=== PATIENT | female | born 1955 | race Caucasian/White ===

== ENCOUNTER 2018-11-13 20:39 | Observation (INO) | payer BC, OTHER ==
[2018-11-14] MEDS ORDERED: FENTANYL CITR 100 MCG/2 ML ONE (01:12)
--- NOTE | 2018-11-14 03:17 | ER ---
Nurse's Notes [facility] Name: Marielle Clark Age: 63 yrs Sex: Female : 1955 Arrival Date: 11/13/2018 Time: 20:40 Bed 16 Private MD: Diagnosis: Comminuted fracture of shaft of tibia;Displaced fracture of medial condyle of right femur Presentation: 11/13 20:45 Presenting complaint: EMS states: right leg and knee pain sustained from fall from bed cc3 at home. Transition of care: patient was not received from another setting of care. Onset of symptoms was November 13, 2018. Risk Assessment: Do you want to hurt yourself or someone else? Patient reports no desire to harm self or others. Initial Sepsis Screen: Does the patient meet any 2 criteria? No. Patient's initial sepsis screen is negative. Does the patient have a suspected source of infection? No. Patient's initial sepsis screen is negative. Care prior to arrival: Medication(s) given: Patient on Fentanyl Patch 25 mcg/hr on her right upper chest since yesterday (she said she's been taking it PRN for 72 hours for her migraines and left shoulder pain), patient said she took Oxycodone 10 mg oral prior to coming to ER, Vistaril 50 mg for her nausea prior to consult, and Xanax 1mg. 20:45 Method Of Arrival: EMS: [facility] cc3 20:45 Acuity: FRIEDA 3 cc3 Triage Assessment: 20:45 General: Appears in no apparent distress. uncomfortable, Behavior is cooperative, cc3 appropriate for age. Pain: Complains of pain in right knee. EENT: No signs and/or symptoms were reported regarding the EENT system. Neuro: Level of Consciousness is awake, alert, obeys commands, Oriented to person, place, time, situation, Appropriate for age. Cardiovascular: Denies chest pain. Respiratory: Airway is patent Respiratory effort is even, unlabored, Respiratory pattern is regular, symmetrical. GI: Abdomen is round obese. : No signs and/or symptoms were reported regarding the genitourinary system. Derm: No signs and/or symptoms reported regarding the dermatologic system. Musculoskeletal: Circulation, motion, and sensation intact. Range of motion: limited in right knee. Historical: - Allergies: 20:45 BACLOFEN; cc3 20:45 chlorpromazine HCl; cc3 20:45 Cipro; cc3 20:45 Compazine; cc3 20:45 thorazine; cc3 20:45 Imipramine; cc3 20:45 Nubain; cc3 20:45 Phenergan; cc3 20:45 Reglan; cc3 20:45 Stadol; cc3 20:45 Toradol; cc3 - PMHx: 20:45 Bronchitis; High Cholesterol; Hypothyroidism; Migraines; bladder and rectal prolapse; cc3 - PSHx: 20:45 Hysterectomy; Appendectomy; Tubal ligation; right and left knee surgeries; left cc3 shoulder surgery; - Immunization history:: Adult Immunizations not up to date, Flu vaccine is not up to date. It has been more than one year since last vaccine. - Social history:: Smoking status: Patient/guardian denies using tobacco, never smoked. - Ebola Screening: : No symptoms or risks identified at this time. Screenin:45 Abuse screen: Denies threats or abuse. Denies injuries from another. Nutritional cc3 screening: No deficits noted. Tuberculosis screening: No symptoms or risk factors identified. Fall Risk Ambulatory Aid- None/Bed Rest/Nurse Assist (0 pts). Gait- Normal/Bed Rest/Wheelchair (0 pts) Mental Status- Oriented to own ability (0 pts). Assessment: 20:45 General: see triage assessment. cc3 21:20 Reassessment: Patient appears in no apparent distress at this time. Patient and/or cc3 family updated on plan of care and expected duration. Pain level reassessed. Patient is alert, oriented x 3, equal unlabored respirations, skin warm/dry/pink. 22:25 Reassessment: Patient appears in no apparent distress at this time. Patient and/or cc3 family updated on plan of care and expected duration. Pain level reassessed. Patient is alert, oriented x 3, equal unlabored respirations, skin warm/dry/pink. 23:14 Reassessment: Patient appears in no apparent distress at this time. Patient and/or cc3 family updated on plan of care and expected duration. Pain level reassessed. Patient is alert, oriented x 3, equal unlabored respirations, skin warm/dry/pink. 11/14 00:39 Reassessment: Patient appears in no apparent distress at this time. Patient and/or cc3 family updated on plan of care and expected duration. Pain level reassessed. Patient is alert, oriented x 3, equal unlabored respirations, skin warm/dry/pink. Patient came back from CT scan department, awaiting result; patient complained of knee pain, informed charge nurse Marielle because Dr. Mera and MIGNON Hester went up to the med-surg unit for a code, and explained to the patient. 01:00 Reassessment: Patient appears in no apparent distress at this time. Patient and/or cc3 family updated on plan of care and expected duration. Pain level reassessed. Patient is alert, oriented x 3, equal unlabored respirations, skin warm/dry/pink. Dr. Mera is aware that patient is on Fentanyl patch 25 mcg/hr since yesterday but he still ordered for Fentanyl 25 mcg IV to be given now for the patient's pain. 01:16 Reassessment: Patient appears in no apparent distress at this time. Patient and/or cc3 family updated on plan of care and expected duration. Pain level reassessed. Patient is alert, oriented x 3, equal unlabored respirations, skin warm/dry/pink. 02:14 Reassessment: Patient appears in no apparent distress at this time. Patient and/or cc3 family updated on plan of care and expected duration. Pain level reassessed. Patient is alert, oriented x 3, equal unlabored respirations, skin warm/dry/pink. 03:00 Reassessment: Patient appears in no apparent distress at this time. Patient and/or cc3 family updated on plan of care and expected duration. Pain level reassessed. Patient is alert, oriented x 3, equal unlabored respirations, skin warm/dry/pink. Dr. Mera said patient is for admission, awaiting admission orders. 03:40 Reassessment: Room available at 220, report called and handed over to TEMO clancy for continuity of care. 03:49 Reassessment: Patient left ER for admission vitally stable by stretcher escorted by in katie3 and the patient's . Vital Signs: 11/13 20:45 BP 111 / 84; Pulse 87; Resp 20 S; Temp 98.6(O); Pulse Ox 100% on R/A; Weight 85.28 kg cc3 (R); Height 5 ft. 3 in. (160.02 cm) (M); 21:39 BP 147 / 79; Pulse 77; Resp 18 S; Pulse Ox 99% on R/A; cc3 22:30 BP 159 / 73; Pulse 76; Resp 18 S; Pulse Ox 99% on R/A; cc3 23:12 BP 134 / 70; Pulse 80; Resp 18 S; Pulse Ox 98% on R/A; cc3 11/14 00:42 BP 153 / 91; Pulse 87; Resp 20 S; Pulse Ox 96% on R/A; cc3 01:16 BP 141 / 90; Pulse 80; Resp 19 S; Pulse Ox 100% on R/A; cc3 02:14 BP 124 / 80; Pulse 75; Resp 19 S; Pulse Ox 95% on R/A; cc3 03:30 BP 139 / 80; Pulse 76; Resp 19 S; Pulse Ox 97% on R/A; cc3 11/13 20:45 Body Mass Index 33.30 (85.28 kg, 160.02 cm) cc3 ED Course: 11/13 20:40 Patient arrived in ED. ds1 20:41 Chaitanya Mera MD is Attending Physician. gs 20:45 Arm band placed on left wrist. Patient notified of wait time. cc3 20:45 Patient has correct armband on for positive identification. Bed in low position. Call cc3 light in reach. Side rails up X2. Pulse ox on. NIBP on. 20:45 Maintain EMS IV. Dressing intact. Good blood return noted. Site clean \T\ dry. Gauge \T\ cc 3 site: gauge 22 left ACV. 20:53 Tiffanie Hines is Primary Nurse. cc3 20:58 Triage completed. cc3 21:36 Knee Right 3 View XRAY In Process Unspecified. EDMS 21:36 Tib Fib Right XRAY In Process Unspecified. EDMS 21:36 Foot Right 3 View XRAY In Process Unspecified. EDMS 02 00:[address] via stretcher. kw1 00:25 CT completed. Patient tolerated procedure well. Patient moved back from CT. kw1 00:50 Knee Right Wo Cont In Process Unspecified. EDMS 03:15 Sandi Jordan MD is Hospitalizing Provider. gs 03:40 No provider procedures requiring assistance completed. Patient admitted, IV remains in cc3 place. Administered Medications: 01:05 Drug: fentaNYL (PF) 25 mcg Route: IVP; Site: left antecubital; cc3 01:31 Follow up: Response: No adverse reaction cc3 Outcome: 03:16 Decision to Hospitalize by Provider. [email or web address] 03:40 Admitted to Med/surg accompanied by tech, family with patient, via stretcher, room 220, cc3 with chart, Report called to TEMO Shi 03:40 Condition: stable 03:40 Instructed on the need for admit, Demonstrated understanding of instructions. 03:49 Patient left the ED. cc3 Signatures: Dispatcher [employer] EDPR Adelia Yadav1 Chaitanya Mera MD MD gs Wilhelm, Kimberly kw1 Tiffanie Hines cc3 Corrections: (The following items were deleted from the chart) 00:50 00:39 Reassessment: Patient appears in no apparent distress at this time. Patient cc3 and/or family updated on plan of care and expected duration. Pain level reassessed. Patient is alert, oriented x 3, equal unlabored respirations, skin warm/dry/pink. Patient came back from CT scan department, awaiting result. cc3 01:16 0202 20:45 Care prior to arrival: Medication(s) given: Patient on Fentanyl Patch on cc3 her right upper chest since yesterday (she said she's been taking it PRN for 72 hours for her migraines and left shoulder pain), patient said she took Oxycodone 10 mg oral prior to coming to ER, Vistaril 50 mg for her nausea prior to consult, and Xanax 1mg. cc3 11/14 01:20 01:16 Pulse 74bpm; Resp 19bpm; Spontaneous; Pulse Ox 96% RA; cc3 cc3 03:44 03:09 Pulse 76bpm; Resp 19bpm; Spontaneous; Pulse Ox 97% RA; cc3 cc3
--- NOTE | 2018-11-14 03:17 | EDPHYS ---
Physician Documentation [facility] Name: Marielle Clark Age: 63 yrs Sex: Female : 1955 Arrival Date: 11/13/2018 Time: 20:40 Bed 16 Private MD: ED Physician Chaitanya Mera HPI: 11/14 03:09 This 63 yrs old Female presents to ER via EMS with complaints of r knee pain. gs 03:09 The patient presents with pain, that is acute. The complaints affect the right knee. gs Context: resulted from the patient falling, fell out of bed. Onset: The symptoms/episode began/occurred acutely, yesterday. Modifying factors: the symptoms are aggravated by weight bearing, bending knee. Associated signs and symptoms: Pertinent negatives calf tenderness, numbness, head injury. Severity of symptoms: At their worst the symptoms were severe, in the emergency department the symptoms are unchanged. The patient has not experienced similar symptoms in the past. Historical: - Allergies: 11/13 20:45 BACLOFEN; cc3 20:45 chlorpromazine HCl; cc3 20:45 Cipro; cc3 20:45 Compazine; cc3 20:45 thorazine; cc3 20:45 Imipramine; cc3 20:45 Nubain; cc3 20:45 Phenergan; cc3 20:45 Reglan; cc3 20:45 Stadol; cc3 20:45 Toradol; cc3 - PMHx: 20:45 Bronchitis; High Cholesterol; Hypothyroidism; Migraines; bladder and rectal prolapse; cc3 - PSHx: 20:45 Hysterectomy; Appendectomy; Tubal ligation; right and left knee surgeries; left cc3 shoulder surgery; - Immunization history:: Adult Immunizations not up to date, Flu vaccine is not up to date. It has been more than one year since last vaccine. - Social history:: Smoking status: Patient/guardian denies using tobacco, never smoked. - Ebola Screening: : No symptoms or risks identified at this time. ROS: 11/14 03:09 All other systems are negative. gs Exam: 03:09 Eyes: Pupils equal round and reactive to light, extra-ocular motions intact. Lids and gs lashes normal. Conjunctiva and sclera are non-icteric and not injected. Cornea within normal limits. Periorbital areas with no swelling, redness, or edema. ENT: Nares patent. No nasal discharge, no septal abnormalities noted. Tympanic membranes are normal and external auditory canals are clear. Oropharynx with no redness, swelling, or masses, exudates, or evidence of obstruction, uvula midline. Mucous membranes moist. Cardiovascular: Regular rate and rhythm with a normal S1 and S2. No gallops, murmurs, or rubs. Normal PMI, no JVD. No pulse deficits. Respiratory: Lungs have equal breath sounds bilaterally, clear to auscultation and percussion. No rales, rhonchi or wheezes noted. No increased work of breathing, no retractions or nasal flaring. Abdomen/GI: Soft, non-tender, with normal bowel sounds. No distension or tympany. No guarding or rebound. No evidence of tenderness throughout. Back: No spinal tenderness. No costovertebral tenderness. Full range of motion. Skin: Warm, dry with normal turgor. Normal color with no rashes, no lesions, and no evidence of cellulitis. Neuro: Awake and alert, GCS 15, oriented to person, place, time, and situation. Cranial nerves II-XII grossly intact. Motor strength 5/5 in all extremities. Sensory grossly intact. Cerebellar exam normal. Normal gait. 03:09 Constitutional: The patient appears alert, awake, uncomfortable. 03:09 Musculoskeletal/extremity: ROM: limited active range of motion, limited passive range of motion, limited active range of motion due to pain, limited passive range of motion due to pain, Circulation is intact in all extremities. Sensation intact. Joints: the right knee displays effusion, limited range of motion, pain at rest, swelling, tenderness. Vital Signs: 11/13 20:45 BP 111 / 84; Pulse 87; Resp 20 S; Temp 98.6(O); Pulse Ox 100% on R/A; Weight 85.28 kg cc3 (R); Height 5 ft. 3 in. (160.02 cm) (M); 21:39 BP 147 / 79; Pulse 77; Resp 18 S; Pulse Ox 99% on R/A; cc3 22:30 BP 159 / 73; Pulse 76; Resp 18 S; Pulse Ox 99% on R/A; cc3 23:12 BP 134 / 70; Pulse 80; Resp 18 S; Pulse Ox 98% on R/A; cc3 02/03 00:42 BP 153 / 91; Pulse 87; Resp 20 S; Pulse Ox 96% on R/A; cc3 01:16 BP 141 / 90; Pulse 80; Resp 19 S; Pulse Ox 100% on R/A; cc3 02:14 BP 124 / 80; Pulse 75; Resp 19 S; Pulse Ox 95% on R/A; cc3 03:30 BP 139 / 80; Pulse 76; Resp 19 S; Pulse Ox 97% on R/A; 3 11/13 20:45 Body Mass Index 33.30 (85.28 kg, 160.02 cm) cc3 MDM: 11/13 20:51 Patient medically screened. 11/14 03:09 Differential diagnosis: dislocation, closed fracture, contusion, abrasion. Data gs reviewed: vital signs, nurses notes. Counseling: I had a detailed discussion with the patient and/or guardian regarding: the historical points, exam findings, and any diagnostic results supporting the discharge/admit diagnosis, radiology results, the need for further work-up and treatment in the hospital. Response to treatment: the patient's symptoms have mildly improved after treatment, and as a result, I will admit patient. Physician consultation: Jese Galeano MD and will see patient in inpatient room. 03:09 Physician consultation: would like admission per Dr. Sandi Jordan MD. 11/14 03:27 Order name: Comprehensive Metabolic Panel EDMS 11/14 03:27 Order name: Comprehensive Metabolic Panel EDMS 11/14 03:27 Order name: Magnesium EDMS 11/14 03:27 Order name: Magnesium EDMS 11/14 03:27 Order name: Phosphorus EDMS 11/14 03:27 Order name: Phosphorus EDMS 11/13 20:50 Order name: Knee Right 3 View XRAY 11/13 20:50 Order name: Tib Fib Right XRAY 11/13 20:50 Order name: Foot Right 3 View XRAY 11/13 23:17 Order name: Knee Right Wo Cont EDMS 11/14 03:27 Order name: Protime (+INR) EDMS 11/14 03:27 Order name: Protime (+INR) EDMS 11/14 03:27 Order name: PTT, Activated Partial Thromb EDMS 11/14 03:27 Order name: PTT, Activated Partial Thromb EDMS 11/14 03:28 Order name: CONS Physician Consult EDVT 11/14 03:28 Order name: NPO EDVT 11/14 03:28 Order name: EKG Electrocardiogram EDVT Administered Medications: 01:05 Drug: fentaNYL (PF) 25 mcg Route: IVP; Site: left antecubital; cc3 01:31 Follow up: Response: No adverse reaction cc3 Disposition: 11/14/18 03:16 Hospitalization ordered by Sandi Jordan for Observation. Preliminary diagnosis are Comminuted fracture of shaft of tibia, Displaced fracture of medial condyle of right femur. - Bed requested for Telemetry/MedSurg (observation). - Status is Observation. cc3 - Condition is Stable. - Problem is new. - Symptoms are unchanged. UTI on Admission? No Signatures: Dispatcher [employer] [facility] Nupur Christensen RN RN Chaitanya Mera MD MD Tiffanie Hines cc3 Corrections: (The following items were deleted from the chart) 03:22 03:16 Hospitalization Ordered by Sandi Jordan MD for Observation. Preliminary mw diagnosis is Comminuted fracture of shaft of tibia; Displaced fracture of medial condyle of right femur. Bed requested for Telemetry/MedSurg (observation). Status is Observation. Condition is Stable. Problem is new. Symptoms are unchanged. UTI on Admission? No. 03:49 03:22 11/14/2018 03:16 Hospitalization Ordered by Sandi Jordan MD for Observation. cc3 Preliminary diagnosis is Comminuted fracture of shaft of tibia; Displaced fracture of medial condyle of right femur. Bed requested for Telemetry/MedSurg (observation). Status is Observation. Condition is Stable. Problem is new. Symptoms are unchanged. UTI on Admission? No. mw
[2018-11-14] MEDS ORDERED: ACETAMINOPHEN 500 MG TAB PO PRN (03:21)
[2018-11-14] MEDS: HYDROMORPHONE HCL 1 MG/ML INJ IV PRN ×2 (04:50→11:08)
[2018-11-14] MEDS: NA CHLORIDE 0.9% 1,000 ML IV SCH ×2 (05:02→16:13)
[2018-11-14 05:08] VITALS: BMI 32.8
[2018-11-14 05:32] LABS: Absolute Lymphocytes (CBC) 0.9 K/uL (0.7-4.9); Absolute Monocytes 0.8 K/uL (0.1-1.3); Absolute Neutrophil 4.9 K/uL (1.8-8.0); Basophils % 0.3 % (0-1.3); Hematocrit 33.6 % (36.0-45.0); Lymphocytes % 13.3 % (15.3-44.8); MPV 10.7 fL (7.6-11.3); Monocytes % 11.8 % (3.3-12.3); RBC Red Blood Cell Count 4.72 M/uL (3.86-4.86)
[2018-11-14 05:48] LABS: Protime INR 1.08
[2018-11-14 05:55] LABS: Albumin 3.7 g/dL (3.4-5.0); Bilirubin Total 1.2 mg/dL (0.2-1.0); Magnesium 1.9 mg/dL (1.8-2.4); Phosphorus 3.2 mg/dL (2.5-4.9); Potassium 4.1 mmol/L (3.5-5.1); Protein, Total 6.8 g/dL (6.4-8.2)
[2018-11-14] MEDS ORDERED: CEFAZOLIN/NS 1gm 1 GM/50 ML BAG IVPB SCH (06:00)
[2018-11-14] MEDS ORDERED: CEFAZOLIN 1GM (PREMIX IV) 1 GM/50 ML BAG ONE (06:27)
--- NOTE | 2018-11-14 08:04 | P.HP ---
Certification for Inpatient Patient admitted to: Inpatient With expected LOS: >2 Midnights Patient will require the following post-hospital care: None Practitioner: I am a practitioner with admitting privileges, knowledge of patient current condition, hospital course, and medical plan of care. Services: Services provided to patient in accordance with Admission requirements found in Title 42 Section 412.3 of the Code of Federal Regulations Patient History Date of Service: 11/14/18 Reason for admission: Status post fall History of Present Illness: Patient is a 63-year-old female who was admitted to the hospital after falling and suffering a tibial plateau fracture as well as a small fracture of the medial femoral condyle. Patient was dusting in standing on a support when she lost her balance and fell. She apparently knocked over a lot of different things that landed on her and she had a lot of pain when she tried to get up. Her leg was deviated outward, and she had a lot of pain when she tried to stand. EMS was called, and patient brought into the hospital. Initial x-rays did not reveal any significant fractures. However, CT scan revealed a tibial plateau fracture which extended into the medial femoral condyle. Patient was brought into the hospital for admission. Allergies baclofen Allergy (Verified 11/14/18 04:35) Itching/Hives/Rash butorphanol [From Stadol] Allergy (Verified 11/14/18 04:35) Unknown butorphanol tartrate [From Stadol] Allergy (Verified 11/14/18 04:35) Itching/Hives/Rash chlorpromazine HCl [From Thorazine] Allergy (Verified 11/14/18 04:35) Itching/Hives/Rash ciprofloxacin [From Cipro] Allergy (Verified 11/14/18 04:35) Itching/Hives/Rash ciprofloxacin HCl [From Cipro] Allergy (Verified 12/02/12 09:46) Itching/Hives/Rash ketorolac Allergy (Verified 11/14/18 04:35) Unknown ketorolac tromethamine [From Toradol] Allergy (Verified 11/14/18 04:35) Itching/Hives/Rash metoclopramide [From Reglan] Allergy (Verified 11/14/18 04:35) Unknown metoclopramide HCl [From Reglan] Allergy (Verified 11/14/18 04:35) Itching/Hives/Rash nalbuphine [From Nubain] Allergy (Verified 11/14/18 04:35) Unknown nalbuphine HCl [From Nubain] Allergy (Verified 11/14/18 04:35) Itching/Hives/Rash prochlorperazine [From Compazine] Allergy (Verified 11/14/18 04:35) Unknown prochlorperazine edisylate [From Compazine] Allergy (Verified 12/02/12 09:46) Itching/Hives/Rash prochlorperazine maleate [From Compazine] Allergy (Verified 12/02/12 09:46) Itching/Hives/Rash promethazine HCl [From Phenergan] Allergy (Verified 11/14/18 04:35) Itching/Hives/Rash chlorp Allergy (Uncoded 04/14/16 13:13) Unknown Ci Allergy (Uncoded 10/13/15 19:10) Unknown Cipro PO Allergy (Uncoded 11/14/18 04:35) Unknown Imi Allergy (Uncoded 01/26/16 12:03) Unknown Imipramine Allergy (Uncoded 02/01/15 20:21) Unknown LIMPRAMIN Allergy (Uncoded 11/14/18 04:35) Itching/Hives/Rash thorazine Allergy (Uncoded 11/14/18 04:35) Unknown Home Medications: ALPRAZolam [Xanax*] 1 tab PO Q8H 11/14/18 Atorvastatin Calcium [Lipitor] 20 mg PO BEDTIME 11/14/18 Levothyroxine Sodium 75 mcg PO DAILY 11/14/18 Oxycodone HCl [Oxycontin] 10 mg PO QID 11/14/18 hydrOXYzine pamoate [Hydroxyzine Pamoate] 50 mg PO TID 11/14/18 - Past Medical/Surgical History Has patient received pneumonia vaccine in the past: No Diabetic: No -: bronchitis -: bladder and rectal prolapse -: migraine -: left shoulder pain -: 4 knee surgeries on the left knee -: 1 knee surgery on right -: tubal ligation -: hysterrectomy - Social History Smoking Status: Never smoker Alcohol use: No CD- Drugs: No Caffeine use: No Place of Residence: Home Review of Systems 10-point ROS is otherwise unremarkable Physical Examination - Vital Signs Temperature: 99.4 F Blood Pressure: 149/70 Pulse: 77 Respirations: 18 Pulse Ox (%): 99 - Physical Exam General: Alert, In no apparent distress, Oriented x3 HEENT: Atraumatic, PERRLA, Mucous membr. moist/pink, EOMI, Sclerae nonicteric Neck: Supple, 2+ carotid pulse no bruit, No LAD, Without JVD or thyroid abnormality Respiratory: Clear to auscultation bilaterally, Normal air movement Cardiovascular: Regular rate/rhythm, Normal S1 S2, No murmurs Gastrointestinal: Normal bowel sounds, Soft and benign, Non-distended, No tenderness Musculoskeletal: No clubbing, No swelling, Tenderness, Other ( Deviation towards the outside of the leg) Integumentary: No rashes Neurological: Normal gait, Normal speech, Normal strength at 5/5 x4 extr, Normal tone, Sensation intact, Cranial nerves 3-12 intact, Normal affect Lymphatics: No axilla or inguinal lymphadenopathy Assessment & Plan - Problems (Diagnosis) (1) Tibial plateau fracture Current Visit: Yes Status: Acute Qualifiers: Encounter type: initial encounter Laterality: right (2) Femoral condyle fracture Current Visit: Yes Status: Acute Qualifiers: Encounter type: initial encounter Fracture alignment: nondisplaced Laterality: right (3) Status post fall Current Visit: Yes Status: Acute - Plan plan: 1. orthopedic consultation 2. pain control 3. strict blood pressure control 4. patient is low risk for any medical and cardiopulmonary complications. Okay to proceed with surgery if necessary 5. physical therapy evaluation 6. GI and DVT prophylaxis Discharge Plan: Home Plan to discharge in: Greater than 2 days - Advance Directives Does patient have a Living Will: No Does patient have a Durable POA for Healthcare: No - Code Status/Comfort Care Code Status Assessed: Yes Code Status: Full Code Critical Care: No Time Spent Managing PTS Care (In Minutes): 50
[2018-11-14] MEDS: ALPRAZOLAM 1 MG TABLET PO SCH ×2 (08:50→16:13)
[2018-11-14] MEDS: hydrOXYzine HCl 25 MG TAB PO SCH ×3 (08:50→21:13)
[2018-11-14] MEDS: OXYCODONE *CR* 10 MG TAB PO SCH ×4 (08:51→21:13)
[2018-11-14] MEDS ORDERED: HOME MED 1 EA UNK (Oxycodone Hcl [Oxycontin] 10 MG) PO SCH (09:00)
[2018-11-14] MEDS ORDERED: HYDROXYZINE PAMOATE 50 MG PO SCH (09:00)
--- NOTE | 2018-11-14 10:46 | RAD REPORT ---
EXAM DESCRIPTION: RAD - Knee Right 3 View - 11/13/2018 9:36 pm CLINICAL HISTORY: PAIN Trauma, pain and swelling COMPARISON: None FINDINGS: Right knee and right tibia/ fibula - multiple projections are submitted Comminuted fracture involving the lateral tibial plateau. Small fracture involving the medial femoral condyle. Moderate lipohemarthrosis. No dislocation evident.
--- NOTE | 2018-11-14 10:47 | RAD REPORT ---
EXAM DESCRIPTION: RAD - Foot Right 3 View - 11/13/2018 9:36 pm CLINICAL HISTORY: PAIN Trauma, pain COMPARISON: No comparisons FINDINGS: No acute fracture or dislocation seen. Small calcaneal spurs are present.
[2018-11-14 11:27] LABS: Urine Appearance CLOUDY; Urine Bilirubin NEGATIVE (NEG); Urine Blood 1+ (NEG); Urine Color YELLOW; Urine Glucose NEGATIVE (NEG); Urine Protein NEGATIVE (NEG); Urine Urobilinogen 0.2 mg/dL (0.2-1.0); Urine pH 5.5 (5.0-7.0)
[2018-11-14 11:39] LABS: Urine Microscopic Reflex ORDER UMIC
[2018-11-14] MEDS: CEFAZOLIN/SWI 1gm 1 GM/10 ML SYR IVP SCH ×2 (12:00→17:00)
[2018-11-14 13:20] LABS: Urine Amorphous Sediment 1+ /HPF (NONE SEEN); Urine Bacteria >50 /HPF (<20); Urine Culture Reflex Order REFLEXED; Urine RBC <5 /HPF (NONE SEEN)
[2018-11-14] MEDS: ENOXAPARIN 30 MG/0.3 ML SQ SCH (16:13)
[2018-11-14] MEDS: HYDROCODONE/APAP 10/325 TAB PO PRN (18:54)
[2018-11-14] MEDS: ATORVASTATIN 20 MG TAB PO SCH (21:12)
[2018-11-15] MEDS: CEFAZOLIN/SWI 1gm 1 GM/10 ML SYR IVP SCH ×5 (00:35→23:36)
[2018-11-15] MEDS: ALPRAZOLAM 1 MG TABLET PO SCH ×3 (00:35→16:54)
--- NOTE | 2018-11-15 03:01 | CON ---
Date of Consultation: 11/14/2018 This is my first time seeing this patient to my knowledge. She is a 63-year-old female who was appar ently standing on her bed, cleaning the top of the headboard when she lost her balance and fell injur ing her right lower extremity. She was seen and examined in the emergency department where x-rays we re taken, which failed to demonstrate any fractures or dislocations other than a tibial plateau fract ure with comminution of the lateral tibial plateau. There is also perhaps a very small tulio off the medial femoral condyle versus calcification. On further review of her history, she has had trouble with her left shoulder in the past, having at least 2 surgeries. She says she has had 4 surgeries on her left knee and 1 surgery previously on her right. She is currently under the pain management of Dr. Roberts and she was admitted last night through the emergency department. Physical Examination: On physical examination today, she complained of pain in the left shoulder with limited mobility, als o complaining of pain in the right knee. There is significant effusion to the right knee. There is no abrasion or sign of open injury. She is neurovascularly intact with no sign of compartment syndro me. There is no obvious clinical deformity. Assessment: Definitely would apply a knee immobilizer to the right lower extremity. Consult Physica l therapy for touchdown weightbearing on the right. Also, I believe that an SCD will be placed on he r left lower extremity. I believe pain management and immobilization is necessary and would not proc eed with any operative intervention at least a few more days to allow the skin envelope to mature as she may or may not develop significant swelling, but this does occur, we may need to delay this even longer. Otherwise, all of her questions have been answered today. /FABIAN Voice ID: [id number] Report ID: [id number]
[2018-11-15] MEDS: HYDROCODONE/APAP 10/325 TAB PO PRN ×2 (04:14→12:12)
[2018-11-15] MEDS: NA CHLORIDE 0.9% 1,000 ML IV SCH ×2 (05:33→20:27)
[2018-11-15] MEDS: LEVOTHYROXINE SOD 0.075 MG TAB PO SCH (05:33)
[2018-11-15] MEDS: OXYCODONE *CR* 10 MG TAB PO SCH (08:38)
[2018-11-15] MEDS: hydrOXYzine HCl 25 MG TAB PO SCH ×3 (08:39→20:26)
--- NOTE | 2018-11-15 10:15 | RAD REPORT ---
EXAM DESCRIPTION: CT Right Lower Extremity Without Intravenous Contrast, Knee CLINICAL HISTORY: The patient is 64 years old and is Female: Injury, abl plain film COMPARISON: No relevant prior studies available. TECHNIQUE: Axial computed tomography images of the right knee without intravenous contrast. Sagittal and coronal reformatted images were created and reviewed. This CT exam was performed using one or more of the fo llowing dose reduction techniques: Automated exposure control, adjustment of the mA and/or kV accordi ng to patient size, and/or use of iterative reconstruction technique. FINDINGS: Bone/Joints: A moderate lipohemarthrosis is present. A impacted and comminuted lateral tibial plateau fracture is present. The fracture plane extends into the intercondylar eminence. There is also a nondisplaced fracture involving the medial femoral condy le. Soft tissues: Unremarkable. IMPRESSION: 1. Comminuted impacted lateral tibial plateau fracture with extension into the intercondylar eminence . 2. Small fracture off of the medial femoral condyle. Given the location, there is possibility of medi al collateral ligament injury. 3. Moderate lipohemarthrosis. Electronically signed by: Gale Forbes MD 11/14/2018 1:42 AM [employer]ANK[employer] Due to temporary technical issues with the PACS/Fluency reporting system, reports are being signed by the in house radiologist as a courtesy to ensure prompt reporting. The interpreting radiologist is f ully responsible for the content of the report.
--- NOTE | 2018-11-15 12:56 | P.SSS ---
Patient History Date of Service: 11/15/18 Reason for admission: Status post fall History of Present Illness: Patient is a 63-year-old female who was admitted to the hospital after falling and suffering a tibial plateau fracture as well as a small fracture of the medial femoral condyle. Patient was dusting in standing on a support when she lost her balance and fell. She apparently knocked over a lot of different things that landed on her and she had a lot of pain when she tried to get up. Her leg was deviated outward, and she had a lot of pain when she tried to stand. EMS was called, and patient brought into the hospital. Initial x-rays did not reveal any significant fractures. However, CT scan revealed a tibial plateau fracture which extended into the medial femoral condyle. Patient was brought into the hospital for admission. Allergies baclofen Allergy (Verified 11/14/18 04:35) Itching/Hives/Rash butorphanol [From Stadol] Allergy (Verified 11/14/18 04:35) Unknown butorphanol tartrate [From Stadol] Allergy (Verified 11/14/18 04:35) Itching/Hives/Rash chlorpromazine HCl [From Thorazine] Allergy (Verified 11/14/18 04:35) Itching/Hives/Rash ciprofloxacin [From Cipro] Allergy (Verified 11/14/18 04:35) Itching/Hives/Rash ciprofloxacin HCl [From Cipro] Allergy (Verified 12/02/12 09:46) Itching/Hives/Rash ketorolac Allergy (Verified 11/14/18 04:35) Unknown ketorolac tromethamine [From Toradol] Allergy (Verified 11/14/18 04:35) Itching/Hives/Rash metoclopramide [From Reglan] Allergy (Verified 11/14/18 04:35) Unknown metoclopramide HCl [From Reglan] Allergy (Verified 11/14/18 04:35) Itching/Hives/Rash nalbuphine [From Nubain] Allergy (Verified 11/14/18 04:35) Unknown nalbuphine HCl [From Nubain] Allergy (Verified 11/14/18 04:35) Itching/Hives/Rash prochlorperazine [From Compazine] Allergy (Verified 11/14/18 04:35) Unknown prochlorperazine edisylate [From Compazine] Allergy (Verified 12/02/12 09:46) Itching/Hives/Rash prochlorperazine maleate [From Compazine] Allergy (Verified 12/02/12 09:46) Itching/Hives/Rash promethazine HCl [From Phenergan] Allergy (Verified 11/14/18 04:35) Itching/Hives/Rash chlorp Allergy (Uncoded 04/14/16 13:13) Unknown Ci Allergy (Uncoded 10/13/15 19:10) Unknown Cipro PO Allergy (Uncoded 11/14/18 04:35) Unknown Imi Allergy (Uncoded 01/26/16 12:03) Unknown Imipramine Allergy (Uncoded 02/01/15 20:21) Unknown LIMPRAMIN Allergy (Uncoded 11/14/18 04:35) Itching/Hives/Rash thorazine Allergy (Uncoded 11/14/18 04:35) Unknown Home Medications: ALPRAZolam [Xanax*] 1 tab PO Q8H 11/14/18 Atorvastatin Calcium [Lipitor*] 20 mg PO BEDTIME 11/14/18 Levothyroxine Sodium 75 mcg PO DAILY 11/14/18 Oxycodone HCl [Oxycontin] 10 mg PO QID 11/14/18 hydrOXYzine pamoate [Hydroxyzine Pamoate] 50 mg PO TID 11/14/18 - Past Medical/Surgical History Has patient received pneumonia vaccine in the past: No Diabetic: No -: bronchitis -: bladder and rectal prolapse -: migraine -: left shoulder pain -: 4 knee surgeries on the left knee -: 1 knee surgery on right -: tubal ligation -: hysterrectomy - Social History Smoking Status: Never smoker Alcohol use: No CD- Drugs: No Caffeine use: No Place of Residence: Home Review of Systems 10-point ROS is otherwise unremarkable Physical Examination - Vital Signs Temperature: 97.9 F Blood Pressure: 119/61 Pulse: 86 Respirations: 20 Pulse Ox (%): 96 - Physical Exam General: Alert, In no apparent distress HEENT: Atraumatic, PERRLA, Mucous membr. moist/pink, EOMI, Sclerae nonicteric Neck: Supple, 2+ carotid pulse no bruit, No LAD, Without JVD or thyroid abnormality Respiratory: Clear to auscultation bilaterally, Normal air movement Cardiovascular: Regular rate/rhythm, Normal S1 S2 Gastrointestinal: Normal bowel sounds, No tenderness Musculoskeletal: Other (Knee immobilizer in place on the right leg) Integumentary: No rashes Neurological: Normal gait, Normal speech, Normal strength at 5/5 x4 extr, Normal tone, Normal affect Lymphatics: No axilla or inguinal lymphadenopathy - Diagnosis (Problem(s)) (1) Femoral condyle fracture Onset Date: 11/15/18 Current Visit: Yes Status: Acute Qualifiers: Encounter type: initial encounter Fracture alignment: nondisplaced Laterality: right (2) Tibial plateau fracture Onset Date: 11/15/18 Current Visit: Yes Status: Acute Qualifiers: Encounter type: initial encounter Laterality: right (3) Status post fall Onset Date: 11/15/18 Current Visit: Yes Status: Acute Treatment Summary: Overall during the hospital stay patient remained stable Patient was seen here in the hospital status post fall and had Femur and tubular fracture. Orthopedics was consulted here in the hospital. Orthopedics recommended the patient be placed in knee immobilizer and allow for the swelling to go down along with the skin to heal. After which patient will be ready for surgery. This may not happen for 7-8 days. Patient was to follow up with orthopedics in about 1-2 days outpatient. Patient was discharged home per orthopedics recommendations. Patient however does have steps that she needs to take to get inside her trailer home. PT was consulted here who did step training along with possible ramp install meant. Patient was able to find a ramp that she can use to get in and out of her trailer. At that time wheelchair was ordered for the patient patient was discharged home under stable condition. Patient was to take Lovenox until she is seen by Orthopedics for DVT prophylaxis - Disposition Condition: GOOD Patient Discharge Instructions: Please followup with Orthopedics tomorrow in their office. Please continue to use knee immobilizer as described by orthopedic doctor here in the hospital. Diet: Regular Activity: Ad jeevan
[2018-11-15] MEDS ORDERED: OXYBUTYNIN ER 5 MG TAB PO SCH (13:00)
[2018-11-15] MEDS ORDERED: FENTANYL 25 MCG/PATCH TD SCH (13:24)
--- NOTE | 2018-11-15 13:41 | RAD REPORT ---
EXAM DESCRIPTION: RAD - Tib Fib Right - 11/13/2018 9:36 pm CLINICAL HISTORY: PAIN Trauma, pain and swelling COMPARISON: None FINDINGS: Right knee and right tibia/ fibula - multiple projections are submitted Comminuted fracture involving the lateral tibial plateau. Small fracture involving the medial femoral condyle. Moderate lipohemarthrosis. No dislocation evident.
[2018-11-15] MEDS: ONDANSETRON 4 MG/2 ML VIAL IV PRN (16:54)
[2018-11-15] MEDS: ENOXAPARIN 30 MG/0.3 ML SQ SCH (16:54)
[2018-11-15] MEDS ORDERED: OXYCODONE *CR* 10 MG TAB PO SCH ×2 (17:00→21:00)
[2018-11-15] MEDS ORDERED: OXYCODONE HCL 5 MG TAB PO SCH (18:00)
[2018-11-15] MEDS: ATORVASTATIN 20 MG TAB PO SCH (20:26)
[2018-11-16] MEDS: ALPRAZOLAM 1 MG TABLET PO SCH ×3 (00:34→16:50)
[2018-11-16] MEDS: CEFAZOLIN/SWI 1gm 1 GM/10 ML SYR IVP SCH ×3 (05:34→16:51)
[2018-11-16] MEDS: LEVOTHYROXINE SOD 0.075 MG TAB PO SCH (05:34)
[2018-11-16] MEDS: hydrOXYzine HCl 25 MG TAB PO SCH ×3 (09:04→20:28)
[2018-11-16] MEDS: ONDANSETRON 4 MG/2 ML VIAL IV PRN (09:13)
[2018-11-16] MEDS: NA CHLORIDE 0.9% 1,000 ML IV SCH ×3 (09:20→22:40)
[2018-11-16 10:48] VITALS: O2SAT 96
[2018-11-16] MEDS: ENOXAPARIN 30 MG/0.3 ML SQ SCH (16:50)
[2018-11-16] MEDS ORDERED: FENTANYL 50 MCG/PATCH TD SCH (19:00)
[2018-11-16] MEDS: ATORVASTATIN 20 MG TAB PO SCH (20:28)
[2018-11-17] MEDS: CEFAZOLIN/SWI 1gm 1 GM/10 ML SYR IVP SCH ×2 (00:35→05:37)
[2018-11-17] MEDS: ALPRAZOLAM 1 MG TABLET PO SCH ×2 (00:35→09:11)
[2018-11-17] MEDS: LEVOTHYROXINE SOD 0.075 MG TAB PO SCH (05:38)
[2018-11-17] MEDS: hydrOXYzine HCl 25 MG TAB PO SCH ×2 (09:11→13:29)
[2018-11-17] MEDS ORDERED: OXYCODONE HCL 5 MG TAB PO ONE (09:50)
[2018-11-17] MEDS: NA CHLORIDE 0.9% 1,000 ML IV SCH (12:00)
[2018-11-17 12:23] VITALS: BP 127/60; TEMP 97.3
--- NOTE | 2018-11-17 15:02 | DS ---
Date of Discharge: 11/16/2018 Consultants: Dr. Galeano with Orthopedics. Discharge Diagnoses: 1. Right femoral condyle fracture, nondisplaced. 2. Tibial plateau fracture on the right, initial encounter. 3. Status post fall. 4. Obesity, BMI 32.8. 5. History of migraine headaches. 6. Chronic pain syndrome. Hospital Course: The patient is a 63-year-old female who came into the hospital after a fall and found to have tibial plateau fracture and a small fracture of the medial femoral condyle on the right. This was a mechanical fall. The patient's CT scan was done and she was admitted to the hospital for further evaluation and workup. She was seen by Dr. Galeano with Orthopedics, who recommended outpatient followup after the swelling has improved. The patient's pain was controlled. She does have a history of chronic pain syndrome and is on multiple narcotics. The patient was evaluated by PT. A wheelchair was set up for the patient and the patient was then cleared for discharge. Overall, the patient did well over the course of the hospital stay. The patient will be in knee immobilizer and swelling will need to go down and allow the skin to heal up and mature, after which the patient may have surgery in the following week or 2. The patient will be on full dose aspirin for DVT prophylaxis. The patient's was able to find ramp to her mobile home, and she will be in a wheelchair. She worked with physical therapy and is doing well with transferring. Medications: As per medication reconciliation list. Followup: Follow up with primary care physician in 2-3 days. Follow up with Orthopedic surgeon, Dr. Galeano, in 1 week. Follow up with the seed and fertilizer specialist in 1 week. Return to ER for worsening condition. Continue knee immobilizer and weightbearing status as per Orthopedics. Diet: Regular diet. Activity: Fall precautions. Physical Examination: General: Awake, alert, oriented x3. No acute distress. Mild pain. CV: S1, S2. Regular rate and rhythm. Pulses present peripherally. Respiratory: Moving air well bilaterally. No wheezing. Gastrointestinal: Abdomen is soft, nontender, nondistended. Positive bowel sounds. Extremities: No clubbing, cyanosis, or edema. Musculoskeletal: Right leg is in a knee immobilizer. Neuro: Cranial nerves 2 through 12 intact grossly. No focal neurological deficit. Sensation intact to light touch. Speech is normal. Total time spent discharging the patient was 37 minutes. ADDENDUM: Patient not DC till day after due to durable medical equipment delay /FABIAN Voice ID: [id number] Report ID: [id number] MTDD
--- NOTE | 2018-11-17 17:41 | PN ---
Date of Progress Note: 11/17/2018 Subjective: The patient is seen and examined. Chart reviewed and case discussed with RN. The patient again requesting oxycodone by name. The patient states she is having pain in her right leg. The patient unable to be discharged yesterday as her wheelchair did not arrive. It is scheduled to arrive today. Medications: List reviewed. Physical Examination: Vital Signs: Temperature 97.5, heart rate 69, blood pressure 117/61, respirations 14, O2 97% on room air. General: Awake, alert, oriented x3. Some mild distress. Elderly female, obese , appears older than stated age. CV: S1, S2. Regular rate and rhythm. Peripheral pulses present. Respiratory: Moving air well bilaterally. No wheezing. Gastrointestinal: Abdomen is soft, nontender, nondistended. Positive bowel sounds. Extremities: No clubbing, cyanosis, or edema. Musculoskeletal: Right leg in knee immobilizer. Neurologic: Nonfocal. Sensation intact to light touch. Assessment And Plan: 1. A 63-year-old female with status post fall. 2. Femoral condyle fracture, initial encounter, nondisplaced right side. 3. Tibial plateau fracture, initial encounter, on the right. 4. Obesity, BMI 32.8. 5. Chronic pain syndrome. 6. Chronic nicotine dependence. Plan: Discharge the patient once wheelchair has been set up. The patient will follow up with Dr. Galeano, orthopedics, as an outpatient for surgery once inflammation has decreased. /FABIAN Voice ID: [id number] Report ID: [id number] ERIN
== END 2018-11-17 15:00 | disposition home or self-care (01) ==
LOC: ER 20:39 → ERHOLD 11-14 03:30 → INTOOBSV 11-14 03:30 → 2ND 11-14 03:41
PROVIDERS: ADMIT Family Medicine; ATTEND Hospitalist
DX: S72.434A Nondisplaced fracture of medial condyle of right femur, initial encounter for closed fracture (principal); S82.141A Displaced bicondylar fracture of right tibia, initial encounter for closed fracture; W01.0XXA Fall on same level from slipping, tripping and stumbling without subsequent striking against object, initial encounter; Y93.E9 Activity, other interior property and clothing maintenance; Y92.003 Bedroom of unspecified non-institutional (private) residence as the place of occurrence of the external cause; Z88.0 Allergy status to penicillin
CPT/HCPCS: 36415; 73700; 80053; 81003; 81015; 82962; 83735; 84100; 85025; 85610; 85730; 87086; 87088; 87493; 96374; 97110; 97116; 97162; 97530; 97542; 99285; J0690; J1170; J1650; J2405; J3010; J7030

== ENCOUNTER 2020-06-05 17:27 | Emergency (ER) | payer BC, OTHER ==
--- OUTSIDE RECORDS SUMMARY | 2020-06-05 17:29 | XMS REPORT | Continuity of Care Document ---
:1955 Author Organization [facility] t Address [address] [place] [address] [address] [place] [address] Care Team Providers Name Role Phone Unavailable Unavailable Unavailable Problems This patient has no known problems. Allergies, Adverse Reactions, Alerts This patient has no known allergies or adverse reactions. Medications This patient has no known medications. Procedures This patient has no known procedures. Results This patient has no known results.
[2020-06-05 18:19] LABS: Absolute Lymphocytes (CBC) 2.2 K/uL (0.7-4.9); Basophils % 0.2 % (0-1.3); Lymphocytes % 37.7 % (15.3-44.8); MPV 9.7 fL (7.6-11.3)
[2020-06-05 18:42] LABS: Hematocrit 19.6 % (36.0-45.0)
[2020-06-05 18:46] LABS: Albumin 3.5 g/dL (3.4-5.0); Bilirubin Direct 0.2 mg/dL (0-0.2); Bilirubin Total 0.6 mg/dL (0.2-1.0); Potassium 3.6 mmol/L (3.5-5.1); Protein, Total 7.4 g/dL (6.4-8.2)
--- NOTE | 2020-06-05 19:35 | RAD REPORT ---
EXAM DESCRIPTION: CT - Abdomen Pelvis W Contrast - 06/05/2020 7:05 pm CLINICAL HISTORY: ABD PAIN COMPARISON: CT ABD PELVIS W CONTRAST dated 12/18/2008 TECHNIQUE: Biphasic, helical CT imaging of the abdomen and pelvis was performed following 100 ml non -ionic IV contrast. No oral contrast administered. All CT scans are performed using dose optimization technique as appropriate and may include automated exposure control or mA/KV adjustment according to patient size. FINDINGS: No acute pleural or parenchymal process. No pericardial effusion. Moderate-size hiatal hernia is present. This accentuates gastric fundus wall thickness. Several 8-15 mm lymph nodes are present near the GE junction. The hiatal hernia is new or enlarged from the prior study. The liver, spleen, and pancreas show no suspicious findings. Gallbladder and biliary tree are also wi thout suspicious finding. Symmetric renal function is seen with no hydronephrosis or suspicious renal mass. No pyelonephritis o r acute parenchymal process. No bladder abnormalities. No adrenal abnormalities. Intraabdominal portion of the stomach shows no acute finding. No small bowel abnormality. No appendic itis findings. Moderate stool volume fills but does not dilate the colon from cecum to splenic flexur e. Remaining portion of the colon is mostly decompressed. No obstructing mass or point of transition. No free air, free fluid or inflammatory stranding. No hernia, mass or bulky lymphadenopathy. No suspicious bony findings. IMPRESSION: Moderate-size hiatal hernia is present. Kerns of the distal most esophagus are questiona macy thickened. Kerns of the herniated portion of the stomach appear thickened. The hernia is new from the 2008 comparison. In the setting of a hiatal hernia, the herniated portions of the gastric kerns and a gastric mucosa c annot be accurately assessed. Follow-up is felt to be warranted. In a benign hiatal hernia, the patie nts do not have this type of lymph node pattern. Gastritis/esophagitis are possible. A more aggressive gastric wall abnormality cannot be excluded. The remainder the examination, as detailed above, is without acute or active process.
--- NOTE | 2020-06-05 19:37 | RAD REPORT ---
EXAM DESCRIPTION: US - Abdomen Exam Limited - 06/05/2020 6:50 pm CLINICAL HISTORY: ABD PAIN COMPARISON: CT ABD PELVIS W CONTRAST dated 12/18/2008 FINDINGS: No gallstones, sludge or other abnormalities within the gallbladder lumen. There is no wal l thickening or pericholecystic fluid. No common duct stone or biliary tree dilatation identified. IMPRESSION: Normal gallbladder and biliary tree ultrasound.
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
--- NOTE | 2020-06-05 20:38 | ER ---
Nurse's Notes [facility] Name: Marielle Grijalva Age: 65 yrs Sex: Female : 1955 Arrival Date: 06/05/2020 Time: 17:30 Bed 16 Private MD: Jose C Simons T Diagnosis: Upper abdominal pain, unspecified;Anemia, unspecified Presentation: 06/05 17:36 Chief complaint: Patient states: RUQ/epigastric pain for [address] Simons believes its ll1 her gallbladder. + nausea. Fever 100 at home early this morning. Coronavirus screen: Client denies travel out of the [place] in the last 14 days. At this time, the client does not indicate any symptoms associated with coronavirus-19. Ebola Screen: Patient denies travel to an Ebola-affected area in the 21 days before illness onset. Initial Sepsis Screen: Does the patient meet any 2 criteria? No. Patient's initial sepsis screen is negative. Risk Assessment: Do you want to hurt yourself or someone else? Patient reports no desire to harm self or others. Onset of symptoms was May 29, 2020. 17:36 Method Of Arrival: Ambulatory ll1 17:36 Acuity: FRIEDA 3 ll1 Historical: - Allergies: 17:40 BACLOFEN; ll1 17:40 chlorpromazine HCl; ll1 17:40 Cipro; ll1 17:40 Compazine; ll1 17:40 Imipramine; ll1 17:40 Nubain; ll1 17:40 Phenergan; ll1 17:40 Reglan; ll1 17:40 Stadol; ll1 17:40 thorazine; ll1 17:40 Toradol; ll1 17:40 Bactrim; ll1 17:40 Flagyl; ll1 - PMHx: 17:40 bladder and rectal prolapse; Bronchitis; High Cholesterol; Hypothyroidism; Migraines; ll1 - PSHx: 17:40 Hysterectomy; Appendectomy; Tubal ligation; right and left knee surgeries; left ll1 shoulder surgery; - Immunization history:: Flu vaccine is not up to date. - Social history:: Smoking status: Patient denies any tobacco usage or history of. Patient/guardian denies using alcohol, street drugs. Screenin:07 Abuse screen: Denies threats or abuse. Denies injuries from another. Nutritional jr10 screening: No deficits noted. Tuberculosis screening: No symptoms or risk factors identified. Fall Risk IV access (20 points). Assessment: 18:07 General: Appears uncomfortable, Behavior is anxious. Pain: Complains of pain in jr10 epigastric area, right upper quadrant and left upper quadrant Pain began 1 week ago. Neuro: No deficits noted. Cardiovascular: No deficits noted. Respiratory: No deficits noted. Airway is patent Respiratory effort is even, unlabored, Respiratory pattern is regular, symmetrical. GI: Abdomen is round pt reports that her abd feels more distended than usual Bowel sounds present X 4 quads. Abd is soft Abdomen is tender to palpation in epigastric area, right upper quadrant and left upper quadrant Reports upper abdominal pain, Patient currently denies diarrhea, nausea, vomiting. : No deficits noted. No signs and/or symptoms were reported regarding the genitourinary system. EENT: No deficits noted. No signs and/or symptoms were reported regarding the EENT system. Derm: No deficits noted. No signs and/or symptoms reported regarding the dermatologic system. Musculoskeletal: No deficits noted. No signs and/or symptoms reported regarding the musculoskeletal system. 19:00 Reassessment: Patient and/or family updated on plan of care and expected duration. Pain vc level reassessed. Patient is alert, oriented x 3, equal unlabored respirations, skin warm/dry/pink. Assumed care from TEMO Awan Patient states symptoms have not improved. 20:26 Reassessment: Provider at bedside to perform a guaiac stool check, patient refuses vc rectum check. 20:40 Reassessment: Patient states, "I don't see the point in my bottom being check for vc bleeding when I already know I'm bleeding, I'm also vomiting blood, my Dr. knows and I'm supposed to have a GI workup with an endoscope. I have a prolapsed rectum and just see the test as a waste.". 20:40 Reassessment: Patient appears in no apparent distress at this time. Patient and/or vc family updated on plan of care and expected duration. Pain level reassessed. Patient is alert, oriented x 3, equal unlabored respirations, skin warm/dry/pink. Vital Signs: 17:36 BP 147 / 68; Pulse 88; Resp 17; Temp 98.6; Pulse Ox 100% ; Pain 8/10; ll1 18:08 BP 119 / 55; Pulse 81; Resp 18; Pulse Ox 100% on R/A; jr10 20:00 BP 107 / 96; Pulse 80; Resp 19; Pulse Ox 100% on R/A; vc ED Course: 17:30 Patient arrived in ED. ag5 17:30 Jose C Simons MD is Private Physician. ag5 17:33 Ann Talley FNP-C is [facility]. kb 17:33 Bladimir Webb MD is Attending Physician. kb 17:39 Triage completed. ll1 17:40 Arm band placed on Patient placed in an exam room, on a stretcher. ll1 17:56 Emperatriz Schwab, RN is Primary Nurse. jr10 18:07 Patient has correct armband on for positive identification. Bed in low position. Call jr10 light in reach. Side rails up X2. Pulse ox on. NIBP on. 18:07 No provider procedures requiring assistance completed. Inserted saline lock: 20 gauge jr10 in left forearm, using aseptic technique. IV is patent, is intact, with good blood return, Flushed. 18:50 US Abdomen Limited In Process Unspecified. EDMS 19:04 CT Abd/Pelvis - IV Contrast Only In Process Unspecified. EDMS 19:26 Report given to TEMO Yap. jr10 20:36 Jose C Simons MD is Referral Physician. kb Administered Medications: No medications were administered Outcome: 20:40 AMA AMA form signed vc 20:40 Condition: stable 20:40 Instructed on The hospital not being responsible for anything that happens if patient leaves AMA. 20:54 Patient left the ED. vc Signatures: Dispatcher [employer] EDMS Ann Talley FNP-C FNP-Oxana Hayden ag5 Marely Perdue RN RN Colin Mcnamara RN RN 1 Emperatriz Schwab RN RN jr10
[2020-06-09 17:31] VITALS: TEMP 98.6; O2SAT 100
[2020-06-09 17:34] VITALS: BP 107/96
== END 2020-06-05 20:54 | disposition left against medical advice (07) ==
LOC: ER 17:27
DX: R10.10 Upper abdominal pain, unspecified (principal); D64.9 Anemia, unspecified; Z88.1 Allergy status to other antibiotic agents; Z88.8 Allergy status to other drugs, medicaments and biological substances; Z53.29 Procedure and treatment not carried out because of patient's decision for other reasons
CPT/HCPCS: 85025; 80048; 36415; 86900; 86850; 86901; 80076; 83690; 74177; 76705; 99283; Q9967

== ENCOUNTER 2020-06-22 11:30 | Day surgery (SDC) | payer BC ==
--- OUTSIDE RECORDS SUMMARY | 2020-06-22 11:34 | XMS REPORT | Continuity of Care Document ---
:1955 [address] Organization [facility] Address [address] [place] [address] Dr. Chase [address] [place] [id number] Care Team Providers Name Role Phone Unavailable Unavailable Unavailable Problems This patient has no known problems. Allergies, Adverse Reactions, Alerts This patient has no known allergies or adverse reactions. Medications This patient has no known medications. Procedures This patient has no known procedures. Results This patient has no known results.
[2020-06-22] MEDS ORDERED: NA CHLORIDE 0.9% 500 ML ONE (12:59)
[2020-06-22 13:25] VITALS: O2SAT 100; BMI 33.6
[2020-06-22 15:29] VITALS: BP 108/47; TEMP 97.3
[2020-06-22 17:36] LABS: Hematocrit 25.1 % (36.0-45.0)
== END 2020-06-22 17:20 | disposition home or self-care (01) ==
LOC: DS 11:30
PROVIDERS: ATTEND Internal Medicine Gastroenterology
DX: D64.9 Anemia, unspecified (principal)
CPT/HCPCS: 36415; 86900; 86850; 86901; 85018; 85014; 36430; P9016; J7040